=== PATIENT | female | born 1965 | race Caucasian/White ===

== ENCOUNTER 2019-05-12 10:24 | Inpatient (IN) | payer OTHER ==
--- NOTE | 2019-05-12 10:33 | PDOC ---
History of Present Illness - General Chief Complaint: Weakness Stated Complaint: BALANCE ISSUE WEAKNESS TO LEGS Time Seen by Provider: 05/12/19 10:30 History Source: Patient Exam Limitations: No Limitations - History of Present Illness Initial Comments: 05/12/19 10:32 Ms Hope is a 53 female presented to emergency department with her due to lightheadedness on standing. Patient has noted over the past few months that when walking she feels lightheaded and dizzy. She denies vertigo. She does also have a headache on the left side of the head which is been present for several months. She denies fevers or chills. She comes in today because her family has insisted that she come in for assessment. She does not follow up with her primary care physician and therefore has no knowledge of medical history. She does not take any medications. She does tell me that she's noticed dark loose stools for at least a month. She has no history or knowledge of peptic ulcer disease, ulcer. She denies chest pain, palpitations, diaphoresis. She denies nausea or vomiting. She was noted by family to have noticeable weight loss (she is unable to tell me how much, she is also unable to tell me how much she weighs now). PMH: unknown PSH: none Meds: none ALL: NKDA Social: Dalily alcohol use - 2 vodkas and 2 talon each night, denies drug use, denies tobacco use FH: CAD mother, all family members ROS: GENERAL/CONSTITUTIONAL: Yes: weakness, loss of appetite No: fever, chills HEAD, EYES, EARS, NOSE AND THROAT: No: change in vision, ear pain, discharge CARDIOVASCULAR: Yes: lightheadedness No: chest pain, palpitations, syncope RESPIRATORY: No: cough, shortness of breath, wheezing GASTROINTESTINAL: No: nausea, vomiting, diarrhea, abdominal pain GENITOURINARY: No: dysuria, hematuria, frequency MUSCULOSKELETAL: No: back pain, neck pain, joint pain SKIN: No: lesions, pallor, rash or easy bruising. NEUROLOGIC: Yes: left sided headache, weakness No: vertigo, paresthesias PE: GENERAL: The patient is in no acute distress, pt is weak appearing. HEAD: Normal . EYES: PERRLA, EOMI, pale conjunctiva ENT: Ears normal, nares patent, oropharynx clear without exudates. Dry mucous membranes. No tongue fasciculations NECK: Normal range of motion, supple without lymphadenopathy LUNGS: Breath sounds equal, clear to auscultation bilaterally. HEART:Regular rate and rhythm, normal S1 and S2 without murmur, rub or gallop. ABDOMEN: Soft, nontender, normoactive bowel sounds. No guarding, no rebound. RECTAL : no thrombosed external hemorrhoids, redundant tissue. no stool on examination EXTREMITIES: Normal range of motion, no edema. NEUROLOGICAL: Cranial nerves II through XII grossly intact. Normal speech. No focal neurological deficits. No tremulousness SKIN: Warm, Dry, normal turgor, no rashes or lesions noted. 05/12/19 12:05 05/14/19 23:37 Past History - Past Medical History Allergies/Adverse Reactions: Allergies Allergy/AdvReac Type Severity Reaction Status Date / Time No Known Allergies Allergy Unverified 05/12/19 10:26 Home Medications: Ambulatory Orders NK [No Known Home Medication] 05/12/19 ED Treatment Course - LABORATORY CBC & Chemistry Diagram: 05/14/19 07:00 05/14/19 07:00 Medical Decision Making - Critical Care Time Total Critical Care Time (minutes): 60 Critical Care Statement: The care of this patient involved high complexity decision making to prevent further life threatening deterioration of the patient 's condition and/or to evaluate & treat vital organ system(s) failure or risk of failure. - Medical Decision Making 05/12/19 12:02 Laboratory Tests 05/12/19 05/12/19 05/12/19 10:55 10:55 10:55 WBC Hgb Hct Plt Count Sodium 130 L Potassium 2.7 L* Chloride 90 L Carbon Dioxide 27 BUN 29.0 H Creatinine 0.6 Creatine Kinase 30 Troponin I < 0.03 Alcohol, Quantitative 180.5 H 05/12/19 10:55 WBC 6.6 Hgb 6.1 L* Hct 17.6 L Plt Count 314 Sodium Potassium Chloride Carbon Dioxide BUN Creatinine Creatine Kinase Troponin I Alcohol, Quantitative Protonix ordered Potassium ordered Pt appears pre renal, gentle hydration ordered 05/12/19 12:02 PT is refusing to stay in the hospital I have offered that she just stay 1 night for a transfusion Pt is refusing She is siting her pets, her job i have explained that I am concerned about her electrolytes and her blood counts being so very low I have called [facility] to assist me with discussing admission with this patient 05/12/19 13:51 EKG - NSR rate of 81 bpm, axis is difficult to determine as pt QRS is very low voltage, no st elevation or depression, t waves upright 05/12/19 14:53 CT with moderate atrophy, no ICH, no masses seen *DC/Admit/Observation/Transfer Diagnosis at time of Disposition: Orthostatic hypotension, Symptomatic anemia, Hypokalemia, Dehydration - Discharge Dispostion Condition at time of disposition: Fair Decision to Admit order: Yes - Referrals - Patient Instructions - Post Discharge Activity
[2019-05-12] MEDS ORDERED: SODIUM CHLORIDE 1,000 ML IV STA (10:38)
[2019-05-12 11:01] LABS: EOS % 0.1 % (0-4.5); WHITE BLOOD COUNT 6.6 K/mm3 (4.0-10.8)
[2019-05-12 11:06] LABS: BASO % 0.5 % (0-2.0); HEMATOCRIT 17.6 % (32.4-45.2); LYMPH % 17.4 % (8-40); MCHC 34.6 g/dl (32.0-36.0); MEAN CELL VOLUME 119.4 fl (80-96); MEAN PLT VOLUME 7.4 fl (7.5-11.1); MONO % 10.4 % (3.8-10.2); NEUT % 71.6 % (42.8-82.8); PLATELET COUNT 314 K/MM3 (134-434); RBC 1.48 M/mm3 (3.60-5.2); RDW 13.8 % (11.6-15.6)
[2019-05-12 11:20] LABS: ALBUMIN 3.8 g/dl (3.4-5.0); BILIRUBIN,TOTAL 0.9 mg/dl (0.2-1); CALCIUM 8.3 mg/dl (8.5-10); CREATININE 0.6 mg/dl (0.55-1.3); MAGNESIUM 2.1 mg/dL (1.8-2.4); TOT PROT 6.4 g/dl (6.4-8.2)
[2019-05-12 11:23] LABS: HEMOGLOBIN 6.1 GM/dl (10.7-15.3); MCH 41.3 pg (25.7-33.7); POTASSIUM 2.7 mmol/L (3.5-5.1)
[2019-05-12] MEDS ORDERED: POTASSIUM CHLORIDE ORAL LIQUID 20 MEQ/15 ML PO ONE (11:31)
[2019-05-12] MEDS ORDERED: PANTOPRAZOLE SODIUM 40 MG VIAL IVPUSH ONE (11:31)
[2019-05-12] MEDS ORDERED: PANTOPRAZOLE SODIUM 40 MG VIAL ONE (11:37)
[2019-05-12] MEDS ORDERED: KCL 10 MEQ IVPB 10 MEQ/100 ML INFUS.BAG IVPB ONE (11:37)
[2019-05-12] MEDS ORDERED: POTASSIUM CHLORIDE ORAL LIQUID 20 MEQ/15 ML ONE (11:38)
[2019-05-12] MEDS ORDERED: KCL 10 MEQ IVPB 10 MEQ/100 ML INFUS.BAG IVPB SCH (11:45)
--- NOTE | 2019-05-12 13:07 | HP ---
CHIEF COMPLAINT: Gait instability PCP: None HISTORY OF PRESENT ILLNESS: 53 year-old woman who has not seen a health care provider in many years and who acknowledges a long history of alcohol abuse. Patient started drinking alcohol in college. She cannot remember a day since then when she did not drink. She presented to the ED today with several complaints: (1) over the past month has had lower extremity weakness, her balance has been off, and she has had to hold on to furniture and [place] to remain upright, this occurs, she says, not from intoxication but because her feet feel tingly; (2) she has been vomiting dark brown vomit x 1 month, last episode 2 days ago; (3) diarrhea for the past two weeks, dark brown loose stools/liquid; (4) bright red blood on toilet paper at end of a bowel movement, this is chronic, not new, denies history of hemorrhoids. In past year has gone from 140-145 lbs to 107 lbs. Patient states she has not been "eating right". LMP a few years ago, denies vaginal bleeding. Denies dysuria, frequency, urgency, hematuria. Denies fever, sweats, chills. Takes no medications other than an occasional Tylenol. A week ago she started taking a daily baby aspirin because someome recommended it to her. She denies NSAID use. ER course was notable for: (1) BP 93/65, p104 (2) Hgb 6.1, MCV 119 (3) K 2.7 Recent Travel: No PAST MEDICAL HISTORY: Alcohol abuse PAST SURGICAL HISTORY: x 20 years (gave to twins given up for adoption) Social History: lives with ; drives to work every day to [place], works in an [employer] firm Smoking: quit 5 years ago, smoked for 15 years Alcohol: daily; vodka, wine; last drink 05/11 ~10pm Drugs: denies Family History: mother 76 Alzheimers; father 73 heart failure, alcholism; sister 58 heart disease, alcholism; brother alive, alcoholic in a program Allergies No Known Allergies Allergy (Unverified 05/12/19 10:26) HOME MEDICATIONS: Home Medications Medication Instructions Recorded NK [No Known Home Medication] 05/12/19 REVIEW OF SYSTEMS CONSTITUTIONAL: +generalized weakness, loss of appetitie, unintentional weight loss ~35 pounds over a year Absent: fever, chills, diaphoresis HEENT: Absent: rhinorrhea, nasal congestion, throat pain, throat swelling, difficulty swallowing, mouth swelling, ear pain, eye pain, visual changes CARDIOVASCULAR: Absent: chest pain, syncope, palpitations, irregular heart rate, lightheadedness , peripheral edema RESPIRATORY: Absent: cough, shortness of breath, dyspnea with exertion, orthopnea, wheezing, stridor, hemoptysis GASTROINTESTINAL: +vomiting dark brown, diarrhea, BRBPR (chronic) Absent: abdominal pain, abdominal distension, constipation, melena, hematochezia GENITOURINARY: Absent: dysuria, frequency, urgency, hesitancy, hematuria, flank pain, genital pain MUSCULOSKELETAL: Absent: myalgia, arthralgia, joint swelling, back pain, neck pain SKIN: Absent: rash, itching, pallor HEMATOLOGIC/IMMUNOLOGIC: Absent: easy bleeding, easy bruising, lymphadenopathy, frequent infections ENDOCRINE: Absent: unexplained weight gain, unexplained weight loss, heat intolerance, cold intolerance NEUROLOGIC: +tingling both feet Absent: headache, focal weakness or paresthesias, dizziness, unsteady gait, seizure, mental status changes, bladder or bowel incontinence PSYCHIATRIC: +alcohol dependence Absent: anxiety, depression, suicidal or homicidal ideation, hallucinations. PHYSICAL EXAMINATION Vital Signs - 24 hr 05/12/19 05/12/19 10:26 11:02 Temperature 98.4 F Pulse Rate 94 H Pulse Rate [ 104 H Left side Standing] Pulse Rate [ 86 Left side Supine] Respiratory 16 Rate Blood Pressure 114/73 Blood Pressure 93/65 [Left side Standing] Blood Pressure 109/78 [Left side Supine] O2 Sat by Pulse 100 Oximetry (%) GENERAL/NEURO: Awake, alert. Anxious. Irritable. Tremulous. Hand tremors, + asterixis; no diaphoresis; CN II-XII grossly intact; speech clear and logical HEAD: Normal with no signs of trauma. EYES: Pupils equal, round and reactive to light, extraocular movements intact, sclera anicteric, conjunctiva clear. No lid lag. EARS, NOSE, THROAT: Ears normal, nares patent, oropharynx clear without exudates. Moist mucous membranes. NECK: Normal range of motion, supple without lymphadenopathy, JVD, or masses. LUNGS: Breath sounds equal, clear to auscultation bilaterally. No wheezes, and no crackles. No accessory muscle use. HEART: Regular rate and rhythm, S1 and S2 ABDOMEN: Soft, nontender, not distended, normoactive bowel sounds, no guarding, no rebound tenderness MUSCULOSKELETAL: Normal range of motion at all joints. No bony deformities or tenderness. No CVA tenderness. UPPER EXTREMITIES: 2+ pulses, warm, well-perfused. No cyanosis. No clubbing. No peripheral edema. LOWER EXTREMITIES: 2+ pulses, warm, well-perfused. No calf tenderness. No peripheral edema. Laboratory Results - last 24 hr 05/12/19 05/12/19 05/12/19 10:55 10:55 10:55 WBC RBC Hgb Hct MCV MCH MCHC RDW Plt Count MPV Absolute Neuts (auto) Neutrophils % Lymphocytes % Monocytes % Eosinophils % Basophils % Sodium 130 L Potassium 2.7 L* Chloride 90 L Carbon Dioxide 27 Anion Gap 13 BUN 29.0 H Creatinine 0.6 Est GFR (CKD-EPI)AfAm 118.93 Est GFR (CKD-EPI)NonAf 102.61 Random Glucose 99 Calcium 8.3 L Magnesium 2.1 Total Bilirubin 0.9 AST 273 H ALT 95 H Alkaline Phosphatase 105 Creatine Kinase 30 Troponin I < 0.03 Total Protein 6.4 Albumin 3.8 TSH 0.92 Stool Occult Blood Alcohol, Quantitative 180.5 H 05/12/19 05/12/19 10:55 11:59 WBC 6.6 RBC 1.48 L Hgb 6.1 L* Hct 17.6 L MCV 119.4 H MCH 41.3 H MCHC 34.6 RDW 13.8 Plt Count 314 MPV 7.4 L Absolute Neuts (auto) 4.8 Neutrophils % 71.6 Lymphocytes % 17.4 Monocytes % 10.4 H Eosinophils % 0.1 Basophils % 0.5 Sodium Potassium Chloride Carbon Dioxide Anion Gap BUN Creatinine Est GFR (CKD-EPI)AfAm Est GFR (CKD-EPI)NonAf Random Glucose Calcium Magnesium Total Bilirubin AST ALT Alkaline Phosphatase Creatine Kinase Troponin I Total Protein Albumin TSH Stool Occult Blood Trace Alcohol, Quantitative ASSESSMENT/PLAN 53 year-old woman who has not seen a health care provider in many years and with a long history of alcohol abuse. Admitted for acute alcohol withdrawal, anemia, and hypokalemia. Alcohol dependence Acute alcohol withdrawal --s/s of alcohol withdrawal present on admission: tremors, asterixis, irritability, anxiety --ativan 1mg IVP x 1 --start librium taper --multi vitamin bag; daily folic acid and thiamine --IV fluids --consult request for Dr. Cristina, [facility] --telemetry monitoring Hypokalemia --replete, goal >4 --recheck lytes 6:00pm Blood loss anemia --Hgb 6.1 --probably chronic, has been vomiting dark brown fluid x 1 month --transfuse 2U PRBC, lasix in between Macrocytic anemia --likely secondary to alcohol --check folate, B12, MMA, homocysteine --iron studies --draw bloods prior to transfusion Prolonged QT interval --QTc 489 --avoid QT prolonging agents including Zofran --Tigan PRN for nausea FEN Fluids: NS@ 125mg/hr Electrolytes: replete as indicated Nutrition: NPO for now DVT prophylaxis: hold chemical prophylaxis due to anemia; SCDs Dispo: continues to require inpatient care. Full code. Visit type - Emergency Visit Emergency Visit: Yes ED Registration Date: 05/12/19 Care time: The patient presented to the Emergency Department on the above date and was hospitalized for further evaluation of their emergent condition. - New Patient This patient is new to me today: Yes Date on this admission: 05/12/19 - Critical Care Critical Care patient: Yes Total Critical Care Time (in minutes): 60 Critical Care Statement: The care of this patient involved high complexity decision making to prevent further life threatening deterioration of the patient 's condition and/or to evaluate & treat vital organ system(s) failure or risk of failure.
[2019-05-12] MEDS ORDERED: DEXTROSE 5%-NORMAL SALINE 1,000 ML IV SCH (13:15)
[2019-05-12] MEDS ORDERED: FOLIC ACID INJECTION - 1 MG, THIAMINE HCL 100 MG, MULTIVIT INJECTION ADULT 10 ML in SOD... IVPB ONE (13:25)
[2019-05-12 13:29] LABS: ADD RBC MORPHOLOGY YES
[2019-05-12] MEDS ORDERED: chlordiazePOXIDE HCL 25 MG CAPSULE PO PRN (13:30)
[2019-05-12] MEDS ORDERED: chlordiazePOXIDE HCL 25 MG CAPSULE PO ONE ×2 (13:33→16:37)
[2019-05-12] MEDS ORDERED: POTASSIUM CHLORIDE TABS 20 MEQ TABLET.ER (FP) PO ONE (13:36)
[2019-05-12] MEDS ORDERED: LORazepam 2 MG/ML SDV VIAL ONE (15:10)
[2019-05-12] MEDS ORDERED: LORazepam 2 MG/ML SDV VIAL IVPUSH ONE (15:20)
[2019-05-12] MEDS: KCL 10 MEQ IVPB 10 MEQ/100 ML INFUS.BAG IVPB SCH ×2 (15:30→15:33)
[2019-05-12] MEDS ORDERED: TRIMETHOBENZAMIDE HCL 300 MG CAPSULE PO PRN (17:35)
[2019-05-12] MEDS ORDERED: SODIUM CHLORIDE 1,000 ML IV SCH (17:45)
[2019-05-12 18:17] LABS: ANION GAP 7 MMOL/L (8-16); CALCIUM 7.5 mg/dl (8.5-10); CHLORIDE 102 mmol/L (98-107); CO2 26 mmol/L (21-32); CREATININE 0.4 mg/dl (0.55-1.3); GLUCOSE,RANDOM 86 mg/dl (74-106); MAGNESIUM 1.8 mg/dL (1.8-2.4); POTASSIUM 4.3 mmol/L (3.5-5.1); SODIUM 135 mmol/L (136-145)
[2019-05-12 19:15] LABS: IRON SERUM 63 ug/dL (50-175); TOTAL IRON BINDING CAPACITY 238 ug/dL (250-450)
[2019-05-12] MEDS ORDERED: FUROSEMIDE 40 MG/4 ML INJECTABLE VIAL IVPUSH ONE (21:00)
[2019-05-12] MEDS: chlordiazePOXIDE HCL 25 MG CAPSULE PO SCH (22:22)
[2019-05-12 23:17] LABS: COCAINE, UR NEGATIVE ng/ml (CUTOFF=300); METHADONE, UR NEGATIVE ng/ml (CUTOFF=300); OPIATES, URI NEGATIVE ng/ml (CUTOFF=300); PHENCYCLIDINE,URINE NEGATIVE ng/ml (CUTOFF=25); URINE AMPHETAMINES NEGATIVE ng/ml (CUTOFF=500); URINE BARBITURATES NEGATIVE ng/ml (CUTOFF=200); URINE BENZODIAZEPINES NEGATIVE ng/ml (CUTOFF=200)
[2019-05-13] MEDS: chlordiazePOXIDE HCL 25 MG CAPSULE PO SCH ×4 (06:23→22:27)
--- NOTE | 2019-05-13 07:42 | PN ---
Physical Exam: SUBJECTIVE: Patient seen and examined at bedside. Very subdued. One word answers. Doing "OK." OBJECTIVE: Vital Signs Period Temp Pulse Resp BP Sys/Carbajal Pulse Ox Last 24 Hr 98.4 F-99.1 F 71-104 16-18 93-114/55-78 94-100 GENERAL/NEURO: Awake, alert. Subdued. No tremors, no asterixis. CN II-XII grossly intact; speech clear and logical LUNGS: Breath sounds equal, clear to auscultation bilaterally. No wheezes, and no crackles. No accessory muscle use. HEART: Regular rate and rhythm, S1 and S2 ABDOMEN: Soft, nontender, not distended UPPER EXTREMITIES: 2+ pulses, warm, well-perfused. No cyanosis. No clubbing. No peripheral edema. LOWER EXTREMITIES: 2+ pulses, warm, well-perfused. No calf tenderness. No peripheral edema. Laboratory Results - last 24 hr 05/12/19 05/12/19 05/12/19 10:55 10:55 10:55 WBC RBC Hgb Hct MCV MCH MCHC RDW Plt Count MPV Absolute Neuts (auto) Neutrophils % Lymphocytes % Monocytes % Eosinophils % Basophils % Hypersegmented Neuts Hypochromia Toxic Granulation Dohle Bodies Polychromasia Poikilocytosis Basophilic Stippling Anisocytosis Microcytosis Macrocytosis Spherocytes Siderocytes Sickle Cells Target Cells Tear Drop Cells Ovalocytes Stomatocytes Helmet Cells Marr-Alliance Bodies [place] Rings Haslett Cells Acanthocytes (Spur) Rouleaux Fragmented RBCs Schistocytes Morphology Comment PTT (Actin FS) Sodium 130 L Potassium 2.7 L* Chloride 90 L Carbon Dioxide 27 Anion Gap 13 BUN 29.0 H Creatinine 0.6 Est GFR (CKD-EPI)AfAm 118.93 Est GFR (CKD-EPI)NonAf 102.61 Random Glucose 99 Calcium 8.3 L Magnesium 2.1 Iron TIBC Iron Saturation Unsaturated IBC Ferritin Total Bilirubin 0.9 AST 273 H ALT 95 H Alkaline Phosphatase 105 Creatine Kinase 30 Troponin I < 0.03 Total Protein 6.4 Albumin 3.8 Vitamin B12 Serum Folate TSH 0.92 Urine Color Urine Appearance Urine pH Urine Protein Urine Glucose (UA) Urine Ketones Urine Blood Urine Nitrite Urine Bilirubin Urine Urobilinogen Ur Leukocyte Esterase Urine HCG, Qual Stool Occult Blood Opiates Screen Methadone Screen Barbiturate Screen Phencyclidine Screen Ur Amphetamines Screen MDMA (Ecstasy) Screen Benzodiazepines Screen Cocaine Screen U Marijuana (THC) Screen Alcohol, Quantitative 180.5 H Blood Type Antibody Screen Crossmatch 05/12/19 05/12/19 05/12/19 10:55 11:45 11:50 WBC 6.6 RBC 1.48 L Hgb 6.1 L* Hct 17.6 L MCV 119.4 H MCH 41.3 H MCHC 34.6 RDW 13.8 Plt Count 314 MPV 7.4 L Absolute Neuts (auto) 4.8 Neutrophils % 71.6 Lymphocytes % 17.4 Monocytes % 10.4 H Eosinophils % 0.1 Basophils % 0.5 Hypersegmented Neuts Cancelled Hypochromia Cancelled Toxic Granulation Cancelled Dohle Bodies Cancelled Polychromasia Cancelled Poikilocytosis Cancelled Basophilic Stippling Cancelled Anisocytosis Cancelled Microcytosis Cancelled Macrocytosis Cancelled Spherocytes Cancelled Siderocytes Cancelled Sickle Cells Cancelled Target Cells Cancelled Tear Drop Cells Cancelled Ovalocytes Cancelled Stomatocytes Cancelled Helmet Cells Cancelled Marr-Alliance Bodies Cancelled [place] Rings Cancelled Kami Cells Cancelled Acanthocytes (Spur) Cancelled Rouleaux Cancelled Fragmented RBCs Cancelled Schistocytes Cancelled Morphology Comment Cancelled PTT (Actin FS) Sodium Potassium Chloride Carbon Dioxide Anion Gap BUN Creatinine Est GFR (CKD-EPI)AfAm Est GFR (CKD-EPI)NonAf Random Glucose Calcium Magnesium Iron TIBC Iron Saturation Unsaturated IBC Ferritin Total Bilirubin AST ALT Alkaline Phosphatase Creatine Kinase Troponin I Total Protein Albumin Vitamin B12 Serum Folate TSH Urine Color Urine Appearance Urine pH Urine Protein Urine Glucose (UA) Urine Ketones Urine Blood Urine Nitrite Urine Bilirubin Urine Urobilinogen Ur Leukocyte Esterase Urine HCG, Qual Stool Occult Blood Opiates Screen Methadone Screen Barbiturate Screen Phencyclidine Screen Ur Amphetamines Screen MDMA (Ecstasy) Screen Benzodiazepines Screen Cocaine Screen U Marijuana (THC) Screen Alcohol, Quantitative Blood Type B POSITIVE B POSITIVE Antibody Screen Negative Crossmatch See Detail 05/12/19 05/12/19 05/12/19 11:59 17:30 17:30 WBC RBC Hgb Hct MCV MCH MCHC RDW Plt Count MPV Absolute Neuts (auto) Neutrophils % Lymphocytes % Monocytes % Eosinophils % Basophils % Hypersegmented Neuts Hypochromia Toxic Granulation Dohle Bodies Polychromasia Poikilocytosis Basophilic Stippling Anisocytosis Microcytosis Macrocytosis Spherocytes Siderocytes Sickle Cells Target Cells Tear Drop Cells Ovalocytes Stomatocytes Helmet Cells Marr-Alliance Bodies [place] Rings Kami Cells Acanthocytes (Spur) Rouleaux Fragmented RBCs Schistocytes Morphology Comment PTT (Actin FS) Sodium Potassium Chloride Carbon Dioxide Anion Gap BUN Creatinine Est GFR (CKD-EPI)AfAm Est GFR (CKD-EPI)NonAf Random Glucose Calcium Magnesium Iron TIBC Iron Saturation Unsaturated IBC Ferritin Total Bilirubin AST ALT Alkaline Phosphatase Creatine Kinase Troponin I Total Protein Albumin Vitamin B12 Serum Folate TSH Urine Color Urine Appearance Urine pH Urine Protein Urine Glucose (UA) Urine Ketones Urine Blood Urine Nitrite Urine Bilirubin Urine Urobilinogen Ur Leukocyte Esterase Urine HCG, Qual Negative Stool Occult Blood Trace Opiates Screen Negative Methadone Screen Negative Barbiturate Screen Negative Phencyclidine Screen Negative Ur Amphetamines Screen Negative MDMA (Ecstasy) Screen Negative Benzodiazepines Screen Negative Cocaine Screen Negative U Marijuana (THC) Screen Negative Alcohol, Quantitative Blood Type Antibody Screen Crossmatch 05/12/19 05/12/19 05/12/19 17:30 17:35 17:35 WBC RBC Hgb Hct MCV MCH MCHC RDW Plt Count MPV Absolute Neuts (auto) Neutrophils % Lymphocytes % Monocytes % Eosinophils % Basophils % Hypersegmented Neuts Hypochromia Toxic Granulation Dohle Bodies Polychromasia Poikilocytosis Basophilic Stippling Anisocytosis Microcytosis Macrocytosis Spherocytes Siderocytes Sickle Cells Target Cells Tear Drop Cells Ovalocytes Stomatocytes Helmet Cells Marr-Alliance Bodies [place] Rings [place]lett Cells Acanthocytes (Spur) Rouleaux Fragmented RBCs Schistocytes Morphology Comment PTT (Actin FS) 22.5 L Sodium Cancelled Potassium Cancelled Chloride Cancelled Carbon Dioxide Cancelled Anion Gap Cancelled BUN Cancelled Creatinine Cancelled Est GFR (CKD-EPI)AfAm Cancelled Est GFR (CKD-EPI)NonAf Cancelled Random Glucose Cancelled Calcium Cancelled Magnesium Cancelled Iron TIBC Iron Saturation Unsaturated IBC Ferritin Total Bilirubin AST ALT Alkaline Phosphatase Creatine Kinase Troponin I Total Protein Albumin Vitamin B12 404 Serum Folate TSH Urine Color Yellow Urine Appearance Clear Urine pH 5.5 Urine Protein Trace Urine Glucose (UA) Negative Urine Ketones Trace Urine Blood Negative Urine Nitrite Negative Urine Bilirubin 1+ H Urine Urobilinogen 1.0 Ur Leukocyte Esterase Negative Urine HCG, Qual Stool Occult Blood Opiates Screen Methadone Screen Barbiturate Screen Phencyclidine Screen Ur Amphetamines Screen MDMA (Ecstasy) Screen Benzodiazepines Screen Cocaine Screen U Marijuana (THC) Screen Alcohol, Quantitative Blood Type Antibody Screen Crossmatch 05/12/19 05/12/19 05/12/19 17:35 17:35 17:35 WBC RBC Hgb Hct MCV MCH MCHC RDW Plt Count MPV Absolute Neuts (auto) Neutrophils % Lymphocytes % Monocytes % Eosinophils % Basophils % Hypersegmented Neuts Hypochromia Toxic Granulation Dohle Bodies Polychromasia Poikilocytosis Basophilic Stippling Anisocytosis Microcytosis Macrocytosis Spherocytes Siderocytes Sickle Cells Target Cells Tear Drop Cells Ovalocytes Stomatocytes Helmet Cells Marr-Alliance Bodies [place] Rings Haslett Cells Acanthocytes (Spur) Rouleaux Fragmented RBCs Schistocytes Morphology Comment PTT (Actin FS) Sodium 135 L Potassium 4.3 Chloride 102 Carbon Dioxide 26 Anion Gap 7 L BUN 21.0 H Creatinine 0.4 L Est GFR (CKD-EPI)AfAm 135.90 Est GFR (CKD-EPI)NonAf 117.26 Random Glucose 86 Calcium 7.5 L Magnesium 1.8 Iron 63 TIBC 238 L Iron Saturation 26 Unsaturated IBC 175 L Ferritin 1165.1 H Total Bilirubin AST ALT Alkaline Phosphatase Creatine Kinase Troponin I Total Protein Albumin Vitamin B12 Serum Folate > 100 H TSH Urine Color Urine Appearance Urine pH Urine Protein Urine Glucose (UA) Urine Ketones Urine Blood Urine Nitrite Urine Bilirubin Urine Urobilinogen Ur Leukocyte Esterase Urine HCG, Qual Stool Occult Blood Opiates Screen Methadone Screen Barbiturate Screen Phencyclidine Screen Ur Amphetamines Screen MDMA (Ecstasy) Screen Benzodiazepines Screen Cocaine Screen U Marijuana (THC) Screen Alcohol, Quantitative Blood Type Antibody Screen Crossmatch Active Medications Generic Name Dose Route Start Last Admin Trade Name Freq PRN Reason Stop Dose Admin Chlordiazepoxide HCl 10 mg 05/15/19 05:00 Librium - PO 05/15/19 23:01 [id number] Chlordiazepoxide HCl 10 mg 05/16/19 05:00 Librium - PO 05/16/19 17:01 Q12H TIKI Chlordiazepoxide HCl 10 mg 05/15/19 00:00 Librium - PO 05/16/19 00:00 Q4H PRN WITHDRAWAL(CONT SUBST) Chlordiazepoxide HCl 10 mg 05/17/19 05:00 Librium - PO 05/17/19 05:01 ONCE@0500 ONE Chlordiazepoxide HCl 50 mg 05/12/19 23:00 05/13/19 06:23 Librium - PO 05/13/19 23:01 50 mg [id number] TIKI Administration Chlordiazepoxide HCl 25 mg 05/14/19 05:00 Librium - PO 05/14/19 23:01 [id number] Chlordiazepoxide HCl 25 mg 05/12/19 13:30 Librium - PO 05/14/19 23:59 Q4H PRN WITHDRAWAL(CONT SUBST) Folic Acid 1 mg 05/13/19 10:00 Folic Acid - PO DAILY TIKI Sodium Chloride 1,000 mls @ 125 mls/hr 05/12/19 17:45 05/12/19 18:28 Normal Saline - IV 125 mls/hr ASDIR TIKI Administration Pantoprazole Sodium 40 mg 05/13/19 10:00 Protonix - PO DAILY TIKI Thiamine HCl 100 mg 05/13/19 10:00 Vitamin B1 - PO DAILY TIKI Trimethobenzamide HCl 300 mg 05/12/19 17:35 Tigan - PO Q6H PRN NAUSEA AND/OR VOMITING ASSESSMENT/PLAN: 53 year-old woman who has not seen a health care provider in many years and with a long history of alcohol abuse. Admitted for acute alcohol withdrawal, anemia, and hypokalemia. Alcohol dependence Acute alcohol withdrawal --s/s of alcohol withdrawal present on admission, improved --continue librium taper --folic acid and thiamine --consult request for Dr. Cristina, [facility] --continue telemetry monitoring Hypokalemia --replete, goal >4 Blood loss anemia, chronic --transfused 2U PRBC with good response Hgb 8.8 (<--6.1) Macrocytic anemia --likely secondary to alcohol --folate and B12 OK --iron studies pending Prolonged QT interval --QTc 489 --avoid QT prolonging agents-no Zofran --Tigan PRN for nausea FEN Fluids: PO intake adequate Electrolytes: replete as indicated Nutrition: full liquid; advance as tolerated DVT prophylaxis: continue to hold chemical prophylaxisdue to anemia; SCDs Dispo: continues to require inpatient care. Full code. Visit type - Emergency Visit Emergency Visit: Yes ED Registration Date: 05/12/19 Care time: The patient presented to the Emergency Department on the above date and was hospitalized for further evaluation of their emergent condition. - New Patient This patient is new to me today: No - Critical Care Critical Care patient: No
[2019-05-13 07:57] LABS: BASO % 0.6 % (0-2.0); EOS % 0.8 % (0-4.5); HEMATOCRIT 25.9 % (32.4-45.2); HEMOGLOBIN 8.8 GM/dl (10.7-15.3); INR 1.04 (0.82-1.09); LYMPH % 10.2 % (8-40); MCH 35.6 pg (25.7-33.7); MCHC 34.2 g/dl (32.0-36.0); MEAN PLT VOLUME 7.4 fl (7.5-11.1); MONO % 15.3 % (3.8-10.2); NEUT % 73.1 % (42.8-82.8); PLATELET COUNT 244 K/MM3 (134-434); PROTHROMBIN TIME (PATIENT) 11.6 SEC (10.2-13.0); RBC 2.49 M/mm3 (3.60-5.2); RDW 26.1 % (11.6-15.6); WHITE BLOOD COUNT 5.9 K/mm3 (4.0-10.8)
[2019-05-13 08:03] LABS: ALBUMIN 3.2 g/dl (3.4-5.0); BILIRUBIN,TOTAL 1.4 mg/dl (0.2-1); CALCIUM 7.7 mg/dl (8.5-10); CREATININE 0.4 mg/dl (0.55-1.3); MAGNESIUM 1.5 mg/dL (1.8-2.4); PHOSPHOROUS 2.4 mg/dl (2.5-4.9); POTASSIUM 3.5 mmol/L (3.5-5.1); TOT PROT 5.4 g/dl (6.4-8.2)
[2019-05-13 08:30] LABS: ADD RBC MORPHOLOGY YES
[2019-05-13 09:22] LABS: ANISOCYTOSIS 2+; MACROCYTOSIS 1+
[2019-05-13 09:23] LABS: PLATELET ESTIMATE ADEQUATE
[2019-05-13] MEDS: PANTOPRAZOLE 40 MG TABLET (FP) PO SCH (09:43)
[2019-05-13] MEDS: THIAMINE HCL 100 MG TABLET (FP) PO SCH (09:43)
[2019-05-13] MEDS: FOLIC ACID 1 MG TABLET (FP) PO SCH (09:43)
--- NOTE | 2019-05-13 10:33 | EKG ---
Test Reason : Blood Pressure : / mmHG Vent. Rate : 084 BPM Atrial Rate : 084 BPM P-R Int : 202 ms QRS Dur : 080 ms QT Int : 414 ms P-R-T Axes : 043 044 066 degrees QTc Int : 489 ms NORMAL SINUS RHYTHM PROLONGED QT ABNORMAL ECG WHEN COMPARED WITH ECG OF 12-MAY-2019 10:58, QRS AXIS SHIFTED LEFT ST NO LONGER DEPRESSED IN LATERAL LEADS NONSPECIFIC T WAVE ABNORMALITY NO LONGER EVIDENT IN INFERIOR LEADS Confirmed by RICKY GUERRA MD ([id number]) on 05/13/2019 10:33:12 AM Referred By: AYESHA SANTAMARIA Confirmed By:RICKY GUERRA MD
--- NOTE | 2019-05-13 10:33 | EKG ---
Test Reason : Blood Pressure : / mmHG Vent. Rate : 081 BPM Atrial Rate : 081 BPM P-R Int : 194 ms QRS Dur : 094 ms QT Int : 404 ms P-R-T Axes : 000 131 146 degrees QTc Int : 469 ms POOR DATA QUALITY, INTERPRETATION MAY BE ADVERSELY AFFECTED NORMAL SINUS RHYTHM RIGHT AXIS DEVIATION LOW VOLTAGE QRS NONSPECIFIC ST AND T WAVE ABNORMALITY ABNORMAL ECG NO PREVIOUS ECGS AVAILABLE Confirmed by MARI BASILIO, RICKY ([id number]) on 05/13/2019 10:33:30 AM Referred By: GISSELLE SEWELL Confirmed By:RICKY GUERRA MD
[2019-05-13] MEDS ORDERED: MAGNESIUM SULF 50% (8.12 MEQ/2 ML-1 GM VIAL) IVPB ONE (11:00)
--- NOTE | 2019-05-13 19:27 | PN ---
[facility] Progress Note (SOAP) Subjective: 53 y.o. female referred for consultation for etoh use , pt reluctant to provide information to publicity writer , states drinking alcohol 1 or 2 glasses of wine / day does not wish to disclose for how long , denies symptoms of withdrawal if not drinking , denies nausea/ vomiting diarrhea , denies seizures , blackouts or tremors . Pt is hostile to publicity writer " this is moot , I have to answer these questions again ? " , evasive and not interested in providing further information , declines further medical evaluation from this publicity writer . Reports interest in d/c to home today. Current meds as below . Active Medications Chlordiazepoxide HCl (Librium -) 10 mg PO [id number] [facility] Stop: 05/15/19 23:01 Chlordiazepoxide HCl (Librium -) 10 mg PO Q12H TIKI Stop: 05/16/19 17:01 Chlordiazepoxide HCl (Librium -) 10 mg PO Q4H PRN PRN Reason: WITHDRAWAL(CONT SUBST) Stop: 05/16/19 00:00 Chlordiazepoxide HCl (Librium -) 10 mg PO ONCE@0500 ONE Stop: 05/17/19 05:01 Chlordiazepoxide HCl (Librium -) 50 mg PO [id number] TIKI Stop: 05/13/19 23:01 Last Admin: 05/13/19 18:13 Dose: 50 mg Chlordiazepoxide HCl (Librium -) 25 mg PO [id number] TIKI Stop: 05/14/19 23:01 Chlordiazepoxide HCl (Librium -) 25 mg PO Q4H PRN PRN Reason: WITHDRAWAL(CONT SUBST) Stop: 05/14/19 23:59 Folic Acid (Folic Acid -) 1 mg PO DAILY [facility] Last Admin: 05/13/19 09:43 Dose: 1 mg Pantoprazole Sodium (Protonix -) 40 mg PO DAILY [facility] Last Admin: 05/13/19 09:43 Dose: 40 mg Thiamine HCl (Vitamin B1 -) 100 mg PO DAILY [facility] Last Admin: 05/13/19 09:43 Dose: 100 mg Trimethobenzamide HCl (Tigan -) 300 mg PO Q6H PRN PRN Reason: NAUSEA AND/OR VOMITING Objective: 05/13/19 19:23 CBC, BMP 05/13/19 07:12 05/13/19 07:12 Abnormal Lab Results 05/12/19 05/12/19 05/12/19 11:45 17:35 17:35 RBC Hgb Hct MCV MCH RDW MPV Monocytes % Sodium Creatinine Calcium Phosphorus Magnesium Transferrin 180 L Total Bilirubin AST ALT Total Protein Albumin Serum Folate > 100 H Crossmatch See Detail 05/13/19 05/13/19 07:12 07:12 RBC 2.49 L Hgb 8.8 L Hct 25.9 L D MCV 104.0 H MCH 35.6 H D RDW 26.1 H MPV 7.4 L Monocytes % 15.3 H Sodium 135 L Creatinine 0.4 L Calcium 7.7 L Phosphorus 2.4 L Magnesium 1.5 L Transferrin Total Bilirubin 1.4 H AST 192 H ALT 80 H Total Protein 5.4 L Albumin 3.2 L Serum Folate Crossmatch Vital Signs - 24 hr 05/12/19 05/12/19 05/13/19 20:07 20:08 00:00 Temperature 98.9 F 99.1 F Pulse Rate 95 H 75 Respiratory 18 18 18 Rate Blood Pressure 100/61 101/71 O2 Sat by Pulse 99 99 100 Oximetry (%) 05/13/19 05/13/19 05/13/19 04:00 06:00 13:41 Temperature 98.7 F 98.0 F Pulse Rate 71 78 Respiratory 18 17 Rate Blood Pressure 113/73 115/76 O2 Sat by Pulse 94 L 100 Oximetry (%) 05/13/19 05/13/19 16:00 19:03 Temperature 98.5 F 98.5 F Pulse Rate 81 81 Respiratory 18 Rate Blood Pressure 114/73 O2 Sat by Pulse 100 100 Oximetry (%) Assessment: Alcohol use Plan: pt already on Librium protocol .
[2019-05-14] MEDS: chlordiazePOXIDE HCL 25 MG CAPSULE PO SCH ×3 (06:08→18:31)
[2019-05-14 08:02] LABS: BASO % 0.4 % (0-2.0); EOS % 1.6 % (0-4.5); HEMOGLOBIN 10.2 GM/dl (10.7-15.3); LYMPH % 13.3 % (8-40); MCH 36.3 pg (25.7-33.7); MCHC 34.2 g/dl (32.0-36.0); MEAN PLT VOLUME 7.6 fl (7.5-11.1); MONO % 10.7 % (3.8-10.2); PLATELET COUNT 351 K/MM3 (134-434); RBC 2.81 M/mm3 (3.60-5.2); RDW 27.5 % (11.6-15.6)
[2019-05-14 08:21] LABS: MEAN CELL VOLUME 106.4 fl (80-96)
[2019-05-14 08:31] LABS: ALBUMIN 3.6 g/dl (3.4-5.0); CALCIUM 8.3 mg/dl (8.5-10); CREATININE 0.4 mg/dl (0.55-1.3); MAGNESIUM 1.8 mg/dL (1.8-2.4); POTASSIUM 3.3 mmol/L (3.5-5.1); TOT PROT 6.3 g/dl (6.4-8.2)
[2019-05-14] MEDS ORDERED: MAGNESIUM OXIDE 400 MG TABLET (FP) PO ONE (09:22)
[2019-05-14] MEDS: PANTOPRAZOLE 40 MG TABLET (FP) PO SCH (09:23)
[2019-05-14] MEDS: FOLIC ACID 1 MG TABLET (FP) PO SCH (09:23)
[2019-05-14] MEDS: THIAMINE HCL 100 MG TABLET (FP) PO SCH (09:23)
[2019-05-14] MEDS: POTASSIUM CHLORIDE TABS 20 MEQ TABLET.ER (FP) PO SCH ×2 (09:40→16:19)
--- NOTE | 2019-05-14 13:14 | PN ---
Physical Exam: SUBJECTIVE: Patient seen and examined at bedside. Advised patient HIDA scan negative. Advised patient of all pertinent lab values. Told her the librium taper would not be complete until Friday morning. Patient said she was not going [place] spend the [place]. Discussed at length the risks of leaving AMA including alcohol withdrawal-related seizures, hypoxia, respiratory arrest, aspiration, aspiration pneumonia, status epilepticus, and . Patient stated she still wants to sign out against medical advice. Recommended to patient she establish a relationship with a primary care provider. 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 Patient expressed understanding, thanked me, shook my hand. OBJECTIVE: Vital Signs Period Temp Pulse Resp BP Sys/Carbajal Pulse Ox Last 24 Hr 98.0 F-98.7 F 78-90 16-18 114-117/73-84 96-100 GENERAL/NEURO: Awake, alert. Subdued. No tremors, no asterixis. CN II-XII grossly intact; speech clear and logical LUNGS: Breath sounds equal, clear to auscultation bilaterally. No wheezes, and no crackles. No accessory muscle use. HEART: Regular rate and rhythm, S1 and S2 ABDOMEN: Soft, nontender, not distended UPPER EXTREMITIES: 2+ pulses, warm, well-perfused. No cyanosis. No clubbing. No peripheral edema. LOWER EXTREMITIES: 2+ pulses, warm, well-perfused. No calf tenderness. No peripheral edema. Laboratory Results - last 24 hr 05/12/19 05/14/19 05/14/19 17:35 07:00 07:00 WBC 8.0 RBC 2.81 L Hgb 10.2 L Hct 30.0 L D MCV 106.4 H MCH 36.3 H MCHC 34.2 RDW 27.5 H Plt Count 351 MPV 7.6 Absolute Neuts (auto) 5.9 Neutrophils % 74.0 Lymphocytes % 13.3 Monocytes % 10.7 H Eosinophils % 1.6 Basophils % 0.4 Sodium 134 L Potassium 3.3 L Chloride 99 Carbon Dioxide 28 Anion Gap 7 L BUN 5.0 L Creatinine 0.4 L Est GFR (CKD-EPI)AfAm 135.90 Est GFR (CKD-EPI)NonAf 117.26 Random Glucose 95 Calcium 8.3 L Magnesium 1.8 Transferrin 180 L Total Bilirubin 1.0 AST 131 H ALT 82 H Alkaline Phosphatase 107 D Total Protein 6.3 L Albumin 3.6 Active Medications Generic Name Dose Route Start Last Admin Trade Name Freq PRN Reason Stop Dose Admin Chlordiazepoxide HCl 10 mg 05/15/19 05:00 Librium - PO 05/15/19 23:01 [id number] TIKI Chlordiazepoxide HCl 10 mg 05/16/19 05:00 Librium - PO 05/16/19 17:01 Q12H TIKI Chlordiazepoxide HCl 10 mg 05/15/19 00:00 Librium - PO 05/16/19 00:00 Q4H PRN WITHDRAWAL(CONT SUBST) Chlordiazepoxide HCl 10 mg 05/17/19 05:00 Librium - PO 05/17/19 05:01 ONCE@0500 ONE Chlordiazepoxide HCl 25 mg 05/14/19 05:00 05/14/19 10:48 Librium - PO 05/14/19 23:01 25 mg [id number] TIKI Administration Chlordiazepoxide HCl 25 mg 05/12/19 13:30 Librium - PO 05/14/19 23:59 Q4H PRN WITHDRAWAL(CONT SUBST) Folic Acid 1 mg 05/13/19 10:00 05/14/19 09:23 Folic Acid - PO 1 mg DAILY TIKI Administration Pantoprazole Sodium 40 mg 05/13/19 10:00 05/14/19 09:23 Protonix - PO 40 mg DAILY TIKI Administration Potassium Chloride 40 meq 05/14/19 09:30 05/14/19 09:40 K-Dur - PO 05/14/19 15:31 40 meq Q6H TIKI Administration Thiamine HCl 100 mg 05/13/19 10:00 05/14/19 09:23 Vitamin B1 - PO 100 mg DAILY TIKI Administration Trimethobenzamide HCl 300 mg 05/12/19 17:35 Tigan - PO Q6H PRN NAUSEA AND/OR VOMITING ASSESSMENT/PLAN: 53 year-old woman who has not seen a health care provider in many years and with a long history of alcohol abuse. Admitted for acute alcohol withdrawal, anemia, and hypokalemia. Alcohol dependence Acute alcohol withdrawal --s/s of alcohol withdrawal present on admission, improved --continue librium taper --folic acid and thiamine --seen and evaluated by Dr. Ojeda, behavioral health: not interested in rehab --d/c telemetry monitoring r/oAcalculous cholecystitis --US: mild thickening of gallbladder wall with small amount of pericholecystic free fluid; no gallstones seen --HIDA scan today Hypokalemia --replete, goal >4 Hypomagnesemia --replete, goal >2 Blood loss anemia, chronic --Hgb 6.1 on admission --transfused 2U PRBC 05/13 with good response --h/h stable Macrocytic anemia --likely secondary to alcohol --folate and B12 OK --iron studies pending Prolonged QT interval --QTc 489 --avoid QT prolonging agents-no Zofran --Tigan PRN for nausea FEN Fluids: PO intake adequate Electrolytes: replete as indicated Nutrition: full liquid; advance as tolerated DVT prophylaxis: continue to hold chemical prophylaxisdue to anemia; SCDs Dispo: continues to require inpatient care. Full code.
[2019-05-14 15:48] VITALS: BMI 18.3
--- NOTE | 2019-05-14 17:00 | DS ---
Physical Exam: SUBJECTIVE: Patient seen and examined at bedside. OBJECTIVE: Vital Signs Period Temp Pulse Resp BP Sys/Carbajal Pulse Ox Last 24 Hr 98.0 F-98.7 F 78-90 16-18 114-117/73-84 96-100 GENERAL/NEURO: Awake, alert. Subdued. No tremors, no asterixis. CN II-XII grossly intact; speech clear and logical LUNGS: Breath sounds equal, clear to auscultation bilaterally. No wheezes, and no crackles. No accessory muscle use. HEART: Regular rate and rhythm, S1 and S2 ABDOMEN: Soft, nontender, not distended UPPER EXTREMITIES: 2+ pulses, warm, well-perfused. No cyanosis. No clubbing. No peripheral edema. LOWER EXTREMITIES: 2+ pulses, warm, well-perfused. No calf tenderness. No peripheral edema. Laboratory Tests 05/12/19 05/12/19 05/12/19 10:55 10:55 10:55 WBC RBC Hgb Hct MCV MCH MCHC RDW Plt Count MPV Absolute Neuts (auto) Neutrophils % Lymphocytes % Monocytes % Eosinophils % Basophils % Hypersegmented Neuts Hypochromia Toxic Granulation Dohle Bodies Platelet Estimate Polychromasia Poikilocytosis Basophilic Stippling Anisocytosis Microcytosis Macrocytosis Spherocytes Siderocytes Sickle Cells Target Cells Tear Drop Cells Ovalocytes Stomatocytes Helmet Cells [place] Bodies [place] Rings [place] Cells Acanthocytes (Spur) Rouleaux Fragmented RBCs Schistocytes Morphology Comment PT with INR INR PTT (Actin FS) Sodium 130 L Potassium 2.7 L* Chloride 90 L Carbon Dioxide 27 Anion Gap 13 BUN 29.0 H Creatinine 0.6 Est GFR (CKD-EPI)AfAm 118.93 Est GFR (CKD-EPI)NonAf 102.61 Random Glucose 99 Calcium 8.3 L Phosphorus Magnesium 2.1 Iron TIBC Iron Saturation Unsaturated IBC Transferrin Ferritin Total Bilirubin 0.9 AST 273 H ALT 95 H Alkaline Phosphatase 105 Creatine Kinase 30 Troponin I < 0.03 Total Protein 6.4 Albumin 3.8 Vitamin B12 Serum Folate TSH 0.92 Urine Color Urine Appearance Urine pH Urine Protein Urine Glucose (UA) Urine Ketones Urine Blood Urine Nitrite Urine Bilirubin Urine Urobilinogen Ur Leukocyte Esterase Urine HCG, Qual Stool Occult Blood Opiates Screen Methadone Screen Barbiturate Screen Phencyclidine Screen Ur Amphetamines Screen MDMA (Ecstasy) Screen Benzodiazepines Screen Cocaine Screen U Marijuana (THC) Screen Alcohol, Quantitative 180.5 H Blood Type Antibody Screen Crossmatch 05/12/19 05/12/19 05/12/19 10:55 11:45 11:50 WBC 6.6 RBC 1.48 L Hgb 6.1 L* Hct 17.6 L MCV 119.4 H MCH 41.3 H MCHC 34.6 RDW 13.8 Plt Count 314 MPV 7.4 L Absolute Neuts (auto) 4.8 Neutrophils % 71.6 Lymphocytes % 17.4 Monocytes % 10.4 H Eosinophils % 0.1 Basophils % 0.5 Hypersegmented Neuts Cancelled Hypochromia Cancelled Toxic Granulation Cancelled Dohle Bodies Cancelled Platelet Estimate Polychromasia Cancelled Poikilocytosis Cancelled Basophilic Stippling Cancelled Anisocytosis Cancelled Microcytosis Cancelled Macrocytosis Cancelled Spherocytes Cancelled Siderocytes Cancelled Sickle Cells Cancelled Target Cells Cancelled Tear Drop Cells Cancelled Ovalocytes Cancelled Stomatocytes Cancelled Helmet Cells Cancelled [place] Bodies Cancelled [place] Rings Cancelled Kami Cells Cancelled Acanthocytes (Spur) Cancelled Rouleaux Cancelled Fragmented RBCs Cancelled Schistocytes Cancelled Morphology Comment Cancelled PT with INR INR PTT (Actin FS) Sodium Potassium Chloride Carbon Dioxide Anion Gap BUN Creatinine Est GFR (CKD-EPI)AfAm Est GFR (CKD-EPI)NonAf Random Glucose Calcium Phosphorus Magnesium Iron TIBC Iron Saturation Unsaturated IBC Transferrin Ferritin Total Bilirubin AST ALT Alkaline Phosphatase Creatine Kinase Troponin I Total Protein Albumin Vitamin B12 Serum Folate TSH Urine Color Urine Appearance Urine pH Urine Protein Urine Glucose (UA) Urine Ketones Urine Blood Urine Nitrite Urine Bilirubin Urine Urobilinogen Ur Leukocyte Esterase Urine HCG, Qual Stool Occult Blood Opiates Screen Methadone Screen Barbiturate Screen Phencyclidine Screen Ur Amphetamines Screen MDMA (Ecstasy) Screen Benzodiazepines Screen Cocaine Screen U Marijuana (THC) Screen Alcohol, Quantitative Blood Type B POSITIVE B POSITIVE Antibody Screen Negative Crossmatch See Detail 05/12/19 05/12/19 05/12/19 11:59 17:30 17:30 WBC RBC Hgb Hct MCV MCH MCHC RDW Plt Count MPV Absolute Neuts (auto) Neutrophils % Lymphocytes % Monocytes % Eosinophils % Basophils % Hypersegmented Neuts Hypochromia Toxic Granulation Dohle Bodies Platelet Estimate Polychromasia Poikilocytosis Basophilic Stippling Anisocytosis Microcytosis Macrocytosis Spherocytes Siderocytes Sickle Cells Target Cells Tear Drop Cells Ovalocytes Stomatocytes Helmet Cells [place] Bodies [place] Rings Kami Cells Acanthocytes (Spur) Rouleaux Fragmented RBCs Schistocytes Morphology Comment PT with INR INR PTT (Actin FS) Sodium Potassium Chloride Carbon Dioxide Anion Gap BUN Creatinine Est GFR (CKD-EPI)AfAm Est GFR (CKD-EPI)NonAf Random Glucose Calcium Phosphorus Magnesium Iron TIBC Iron Saturation Unsaturated IBC Transferrin Ferritin Total Bilirubin AST ALT Alkaline Phosphatase Creatine Kinase Troponin I Total Protein Albumin Vitamin B12 Serum Folate TSH Urine Color Urine Appearance Urine pH Urine Protein Urine Glucose (UA) Urine Ketones Urine Blood Urine Nitrite Urine Bilirubin Urine Urobilinogen Ur Leukocyte Esterase Urine HCG, Qual Negative Stool Occult Blood Trace Opiates Screen Negative Methadone Screen Negative Barbiturate Screen Negative Phencyclidine Screen Negative Ur Amphetamines Screen Negative MDMA (Ecstasy) Screen Negative Benzodiazepines Screen Negative Cocaine Screen Negative U Marijuana (THC) Screen Negative Alcohol, Quantitative Blood Type Antibody Screen Crossmatch 05/12/19 05/12/19 05/12/19 17:30 17:35 17:35 WBC RBC Hgb Hct MCV MCH MCHC RDW Plt Count MPV Absolute Neuts (auto) Neutrophils % Lymphocytes % Monocytes % Eosinophils % Basophils % Hypersegmented Neuts Hypochromia Toxic Granulation Dohle Bodies Platelet Estimate Polychromasia Poikilocytosis Basophilic Stippling Anisocytosis Microcytosis Macrocytosis Spherocytes Siderocytes Sickle Cells Target Cells Tear Drop Cells Ovalocytes Stomatocytes Helmet Cells [place] Bodies [place] Rings Kami Cells Acanthocytes (Spur) Rouleaux Fragmented RBCs Schistocytes Morphology Comment PT with INR INR PTT (Actin FS) 22.5 L Sodium Cancelled Potassium Cancelled Chloride Cancelled Carbon Dioxide Cancelled Anion Gap Cancelled BUN Cancelled Creatinine Cancelled Est GFR (CKD-EPI)AfAm Cancelled Est GFR (CKD-EPI)NonAf Cancelled Random Glucose Cancelled Calcium Cancelled Phosphorus Magnesium Cancelled Iron TIBC Iron Saturation Unsaturated IBC Transferrin Ferritin Total Bilirubin AST ALT Alkaline Phosphatase Creatine Kinase Troponin I Total Protein Albumin Vitamin B12 404 Serum Folate TSH Urine Color Yellow Urine Appearance Clear Urine pH 5.5 Urine Protein Trace Urine Glucose (UA) Negative Urine Ketones Trace Urine Blood Negative Urine Nitrite Negative Urine Bilirubin 1+ H Urine Urobilinogen 1.0 Ur Leukocyte Esterase Negative Urine HCG, Qual Stool Occult Blood Opiates Screen Methadone Screen Barbiturate Screen Phencyclidine Screen Ur Amphetamines Screen MDMA (Ecstasy) Screen Benzodiazepines Screen Cocaine Screen U Marijuana (THC) Screen Alcohol, Quantitative Blood Type Antibody Screen Crossmatch 05/12/19 05/12/19 05/12/19 17:35 17:35 17:35 WBC RBC Hgb Hct MCV MCH MCHC RDW Plt Count MPV Absolute Neuts (auto) Neutrophils % Lymphocytes % Monocytes % Eosinophils % Basophils % Hypersegmented Neuts Hypochromia Toxic Granulation Dohle Bodies Platelet Estimate Polychromasia Poikilocytosis Basophilic Stippling Anisocytosis Microcytosis Macrocytosis Spherocytes Siderocytes Sickle Cells Target Cells Tear Drop Cells Ovalocytes Stomatocytes Helmet Cells [place] Bodies [place] Rings Kami Cells Acanthocytes (Spur) Rouleaux Fragmented RBCs Schistocytes Morphology Comment PT with INR INR PTT (Actin FS) Sodium 135 L Potassium 4.3 Chloride 102 Carbon Dioxide 26 Anion Gap 7 L BUN 21.0 H Creatinine 0.4 L Est GFR (CKD-EPI)AfAm 135.90 Est GFR (CKD-EPI)NonAf 117.26 Random Glucose 86 Calcium 7.5 L Phosphorus Magnesium 1.8 Iron 63 TIBC 238 L Iron Saturation 26 Unsaturated IBC 175 L Transferrin Ferritin 1165.1 H Total Bilirubin AST ALT Alkaline Phosphatase Creatine Kinase Troponin I Total Protein Albumin Vitamin B12 Serum Folate > 100 H TSH Urine Color Urine Appearance Urine pH Urine Protein Urine Glucose (UA) Urine Ketones Urine Blood Urine Nitrite Urine Bilirubin Urine Urobilinogen Ur Leukocyte Esterase Urine HCG, Qual Stool Occult Blood Opiates Screen Methadone Screen Barbiturate Screen Phencyclidine Screen Ur Amphetamines Screen MDMA (Ecstasy) Screen Benzodiazepines Screen Cocaine Screen U Marijuana (THC) Screen Alcohol, Quantitative Blood Type Antibody Screen Crossmatch 05/12/19 05/13/19 05/13/19 17:35 07:12 07:12 WBC 5.9 RBC 2.49 L Hgb 8.8 L Hct 25.9 L D MCV 104.0 H MCH 35.6 H D MCHC 34.2 RDW 26.1 H Plt Count 244 MPV 7.4 L Absolute Neuts (auto) 4.4 Neutrophils % 73.1 Lymphocytes % 10.2 Monocytes % 15.3 H Eosinophils % 0.8 Basophils % 0.6 Hypersegmented Neuts Hypochromia 1+ Toxic Granulation Dohle Bodies Platelet Estimate Adequate Polychromasia 1+ Poikilocytosis Basophilic Stippling Anisocytosis 2+ Microcytosis Macrocytosis 1+ Spherocytes Siderocytes Sickle Cells Target Cells Tear Drop Cells Ovalocytes Stomatocytes Helmet Cells [place] Bodies [place] Rings [place] Cells Acanthocytes (Spur) Rouleaux Fragmented RBCs Schistocytes Morphology Comment PT with INR INR PTT (Actin FS) Sodium 135 L Potassium 3.5 Chloride 98 Carbon Dioxide 28 Anion Gap 9 BUN 15.0 Creatinine 0.4 L Est GFR (CKD-EPI)AfAm 135.90 Est GFR (CKD-EPI)NonAf 117.26 Random Glucose 93 Calcium 7.7 L Phosphorus 2.4 L Magnesium 1.5 L Iron TIBC Iron Saturation Unsaturated IBC Transferrin 180 L Ferritin Total Bilirubin 1.4 H AST 192 H ALT 80 H Alkaline Phosphatase 91 D Creatine Kinase Troponin I Total Protein 5.4 L Albumin 3.2 L Vitamin B12 Serum Folate TSH Urine Color Urine Appearance Urine pH Urine Protein Urine Glucose (UA) Urine Ketones Urine Blood Urine Nitrite Urine Bilirubin Urine Urobilinogen Ur Leukocyte Esterase Urine HCG, Qual Stool Occult Blood Opiates Screen Methadone Screen Barbiturate Screen Phencyclidine Screen Ur Amphetamines Screen MDMA (Ecstasy) Screen Benzodiazepines Screen Cocaine Screen U Marijuana (THC) Screen Alcohol, Quantitative Blood Type Antibody Screen Crossmatch 05/13/19 05/14/19 05/14/19 07:12 07:00 07:00 WBC 8.0 RBC 2.81 L Hgb 10.2 L Hct 30.0 L D MCV 106.4 H MCH 36.3 H MCHC 34.2 RDW 27.5 H Plt Count 351 MPV 7.6 Absolute Neuts (auto) 5.9 Neutrophils % 74.0 Lymphocytes % 13.3 Monocytes % 10.7 H Eosinophils % 1.6 Basophils % 0.4 Hypersegmented Neuts Hypochromia Toxic Granulation Dohle Bodies Platelet Estimate Polychromasia Poikilocytosis Basophilic Stippling Anisocytosis Microcytosis Macrocytosis Spherocytes Siderocytes Sickle Cells Target Cells Tear Drop Cells Ovalocytes Stomatocytes Helmet Cells [place] Bodies [place] Rings [place] Cells Acanthocytes (Spur) Rouleaux Fragmented RBCs Schistocytes Morphology Comment PT with INR 11.6 INR 1.04 PTT (Actin FS) Sodium 134 L Potassium 3.3 L Chloride 99 Carbon Dioxide 28 Anion Gap 7 L BUN 5.0 L Creatinine 0.4 L Est GFR (CKD-EPI)AfAm 135.90 Est GFR (CKD-EPI)NonAf 117.26 Random Glucose 95 Calcium 8.3 L Phosphorus Magnesium 1.8 Iron TIBC Iron Saturation Unsaturated IBC Transferrin Ferritin Total Bilirubin 1.0 AST 131 H ALT 82 H Alkaline Phosphatase 107 D Creatine Kinase Troponin I Total Protein 6.3 L Albumin 3.6 Vitamin B12 Serum Folate TSH Urine Color Urine Appearance Urine pH Urine Protein Urine Glucose (UA) Urine Ketones Urine Blood Urine Nitrite Urine Bilirubin Urine Urobilinogen Ur Leukocyte Esterase Urine HCG, Qual Stool Occult Blood Opiates Screen Methadone Screen Barbiturate Screen Phencyclidine Screen Ur Amphetamines Screen MDMA (Ecstasy) Screen Benzodiazepines Screen Cocaine Screen U Marijuana (THC) Screen Alcohol, Quantitative Blood Type Antibody Screen Crossmatch Active Medications Generic Name Dose Route Start Last Admin Trade Name Freq PRN Reason Stop Dose Admin Chlordiazepoxide HCl 10 mg 05/15/19 05:00 Librium - PO 05/15/19 23:01 [id number] TIKI Chlordiazepoxide HCl 10 mg 05/16/19 05:00 Librium - PO 05/16/19 17:01 Q12H TIKI Chlordiazepoxide HCl 10 mg 05/15/19 00:00 Librium - PO 05/16/19 00:00 Q4H PRN WITHDRAWAL(CONT SUBST) Chlordiazepoxide HCl 10 mg 05/17/19 05:00 Librium - PO 05/17/19 05:01 ONCE@0500 ONE Chlordiazepoxide HCl 25 mg 05/14/19 05:00 05/14/19 10:48 Librium - PO 05/14/19 23:01 25 mg [id number] TIKI Administration Chlordiazepoxide HCl 25 mg 05/12/19 13:30 Librium - PO 05/14/19 23:59 Q4H PRN WITHDRAWAL(CONT SUBST) Folic Acid 1 mg 05/13/19 10:00 05/14/19 09:23 Folic Acid - PO 1 mg DAILY TIKI Administration Pantoprazole Sodium 40 mg 05/13/19 10:00 05/14/19 09:23 Protonix - PO 40 mg DAILY TIKI Administration Potassium Chloride 40 meq 05/14/19 09:30 05/14/19 09:40 K-Dur - PO 05/14/19 15:31 40 meq Q6H TIKI Administration Thiamine HCl 100 mg 05/13/19 10:00 05/14/19 09:23 Vitamin B1 - PO 100 mg DAILY TIKI Administration Trimethobenzamide HCl 300 mg 05/12/19 17:35 Tigan - PO Q6H PRN NAUSEA AND/OR VOMITING HOSPITAL COURSE: Date of Admission:05/12/19 Date of Discharge: 05/14/19 Pre hospital course 53 year-old woman who has not seen a health care provider in many years and who acknowledges a long history of alcohol abuse. Patient started drinking alcohol in college. She cannot remember a day since then when she did not drink. She presented to the ED today with several complaints: (1) over the past month has had lower extremity weakness, her balance has been off, and she has had to hold on to furniture and [place] to remain upright, this occurs, she says, not from intoxication but because her feet feel tingly; (2) she has been vomiting dark brown vomit x 1 month, last episode 2 days ago; (3) diarrhea for the past two weeks, dark brown loose stools/liquid; (4) bright red blood on toilet paper at end of a bowel movement, this is chronic, denies history of hemorrhoids. In past year has gone from 140-145 lbs to 107 lbs. Patient states she has not been "eating right". LMP a few years ago, denies vaginal bleeding. Denies dysuria, frequency, urgency, hematuria. Denies fever, sweats, chills. Takes no medications other than an occasional Tylenol. A week ago she started taking a daily baby aspirin because someome recommended it to her. She denies NSAID use. ER course (1) BP 93/65, p104 (2) Hgb 6.1, MCV 119 (3) K 2.7 Subsequent hospital course 53 year-old woman who has not seen a health care provider in many years and with a long history of alcohol abuse. Admitted for acute alcohol withdrawal, anemia, and hypokalemia. Alcohol dependence Acute alcohol withdrawal --s/s of alcohol withdrawal present on admission, improved --started on librium taper, two more days to go at time of AMA --daily folic acid and thiamine --seen and evaluated by Dr. Ojeda, behavioral health: not interested in rehab r/o acalculous cholecystitis --US: mild thickening of gallbladder wall with small amount of pericholecystic free fluid; no gallstones seen --HIDA negative Hypokalemia --daily repletion to goal >4 Hypomagnesemia --daily repletion to goal >2 Blood loss anemia, chronic --Hgb 6.1 on admission --transfused 2U PRBC 05/13 with good response, 10.2 today Macrocytic anemia --likely secondary to alcohol --folate and B12 OK Prolonged QT interval --QTc 489 --avoid QT prolonging agents-no Zofran --Tigan PRN for nausea Disposition Advised patient HIDA scan negative. Advised patient of all pertinent lab values. Told her the librium taper would not be complete until Friday morning. Patient said she was not going to spend the holiday weekend in the hopsital. Discussed at length the risks of leaving AMA including alcohol withdrawal- related seizures, hypoxia, respiratory arrest, aspiration, aspiration pneumonia , status epilepticus, and . Patient stated she still wants to sign out against medical advice. Recommended to patient she establish a relationship with a primary care provider. 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 Patient expressed understanding. Minutes to complete discharge: 35 Discharge Summary Reason For Visit: ORTHOSTATIC HYPOTENSION,SECONDARY ANEMIA,HYPOKALEM Current Active Problems Dehydration (Acute) Hypokalemia (Acute) Orthostatic hypotension (Acute) Symptomatic anemia (Acute) Condition: Fair - Instructions - Home Medications Comprehensive Discharge Medication List: Ambulatory Orders NK [No Known Home Medication] 05/12/19 This patient is new to me today: No Emergency Visit: Yes ED Registration Date: 05/12/19 Care time: The patient presented to the Emergency Department on the above date and was hospitalized for further evaluation of their emergent condition. Critical Care patient: No - Discharge Referral Referred to [facility] Med [facility] No
--- NOTE | 2019-05-14 21:21 | HOSP ---
Subjective - Review of Symptoms Events since last encounter: Advised by nursing staff patient decided to remain in the hospital. All previous orders resumed. Physical Examination Vital Signs: Vital Signs Temperature 98.4 F 05/14/19 18:00 Pulse Rate 103 H 05/14/19 18:00 Respiratory Rate 18 05/14/19 19:52 Blood Pressure 103/64 05/14/19 18:00 O2 Sat by Pulse Oximetry (%) 100 05/14/19 19:52 Labs: CBC, BMP 05/14/19 07:00 05/14/19 07:00
[2019-05-15] MEDS ORDERED: chlordiazePOXIDE HCL 10 MG CAPSULE PO PRN
[2019-05-15] MEDS: chlordiazePOXIDE HCL 25 MG CAPSULE PO SCH (03:02)
[2019-05-15] MEDS ORDERED: chlordiazePOXIDE 5 MG CAPSULE ONE ×2 (06:46→10:18)
[2019-05-15] MEDS: chlordiazePOXIDE HCL 10 MG CAPSULE PO SCH ×2 (06:48→10:22)
--- NOTE | 2019-05-15 08:58 | PN ---
Physical Exam: SUBJECTIVE: Patient seen and examined pt at bedside, [place], dizziness, cp, sob, palpitations, abdominal pain, N/V/D,urinary symptoms,tremors or shaking. OBJECTIVE: Vital Signs Period Temp Pulse Resp BP Sys/Carbajal Pulse Ox Last 24 Hr 98.0 F-99.3 F 80-103 17-18 100-116/64-98 97-100 GENERAL: The patient is awake, alert, and fully oriented, in no acute distress. HEAD: Normal with no signs of trauma. EYES: PERRL, extraocular movements intact, sclera anicteric, conjunctiva clear. No ptosis. ENT: Ears normal, nares patent, oropharynx clear without exudates, moist mucous membranes. NECK: Trachea midline, full range of motion, supple. LUNGS: Breath sounds equal, clear to auscultation bilaterally, no wheezes, no crackles, no accessory muscle use. HEART: Regular rate and rhythm, S1, S2 without murmur, rub or gallop. ABDOMEN: Soft, nontender, nondistended, normoactive bowel sounds, no guarding, no rebound, no hepatosplenomegaly, no masses. EXTREMITIES: 2+ pulses, warm, well-perfused, no edema. NEUROLOGICAL: Cranial nerves II through XII grossly intact. Normal speech, gait not observed. PSYCH: Normal mood, normal affect. SKIN: Warm, dry, normal turgor, no rashes or lesions noted Active Medications Generic Name Dose Route Start Last Admin Trade Name Freq PRN Reason Stop Dose Admin Chlordiazepoxide HCl 10 mg 05/15/19 05:00 05/15/19 06:48 Librium - PO 05/15/19 23:01 10 mg [id number] TIKI Administration Chlordiazepoxide HCl 10 mg 05/16/19 05:00 Librium - PO 05/16/19 17:01 Q12H TIKI Chlordiazepoxide HCl 10 mg 05/15/19 00:00 Librium - PO 05/16/19 00:00 Q4H PRN WITHDRAWAL(CONT SUBST) Chlordiazepoxide HCl 10 mg 05/17/19 05:00 Librium - PO 05/17/19 05:01 ONCE@0500 ONE Folic Acid 1 mg 05/13/19 10:00 05/14/19 09:23 Folic Acid - PO 1 mg DAILY TIKI Administration Pantoprazole Sodium 40 mg 05/13/19 10:00 05/14/19 09:23 Protonix - PO 40 mg DAILY TIKI Administration Thiamine HCl 100 mg 05/13/19 10:00 05/14/19 09:23 Vitamin B1 - PO 100 mg DAILY TIKI Administration Trimethobenzamide HCl 300 mg 05/12/19 17:35 Tigan - PO Q6H PRN NAUSEA AND/OR VOMITING ASSESSMENT/PLAN: 53 year-old woman who has not seen a health care provider in many years and with a long history of alcohol abuse. Admitted for acute alcohol withdrawal, anemia, and hypokalemia. *Alcohol dependence Acute alcohol withdrawal - no evidence of DT -will cont on Librium taper and Thiamin - elevated Folate level - PSY consult done, rec Librium taper - pt not interested Rehab - encouraged to abstinence form drinking *r/o acalculous cholecystitis -US: mild thickening of gallbladder wall with small amount of pericholecystic free fluid; no gallstones seen -HIDA negative - elevated LFt's likely due to ETOH use *Hypokalemia -K.3.3, s/p replacement - will andrews check Cigar Head Holer Hypomagnesemia -daily repletion to goal >2 - will check mg *Blood loss anemia, chronic -Hgb 6.1 on admission -s/p 2 units of blood transfusion, post transfusion 10. - stool ob with trace blood - will monitor CBC closely *Macrocytic anemia-likely secondary to alcohol -Folate level >100 and B12 OK *Prolonged QT interval -QTc 489 -avoid QT prolonging agents-no Zofran -Tigan PRN for nausea * F/E/N - Regular diet - Replace electrolytes as needed *VTE: SCD's, hold off Ac due to anemia. Addendum: pt left AMA Visit type - Emergency Visit Emergency Visit: Yes ED Registration Date: 05/12/19 Care time: The patient presented to the Emergency Department on the above date and was hospitalized for further evaluation of their emergent condition. - New Patient This patient is new to me today: Yes Date on this admission: 05/15/19 - Critical Care Critical Care patient: No
[2019-05-15] MEDS: THIAMINE HCL 100 MG TABLET (FP) PO SCH (09:22)
[2019-05-15] MEDS: PANTOPRAZOLE 40 MG TABLET (FP) PO SCH (09:22)
[2019-05-15 09:42] VITALS: BP 112/65; PULSE 102; TEMP 98.9
[2019-05-15 09:50] LABS: CALCIUM 8.8 mg/dl (8.5-10); CREATININE 0.4 mg/dl (0.55-1.3); POTASSIUM 4.5 mmol/L (3.5-5.1)
[2019-05-15 10:04] LABS: BASO % 0.3 % (0-2.0); EOS % 1.5 % (0-4.5); HEMATOCRIT 30.6 % (32.4-45.2); HEMOGLOBIN 10.2 GM/dl (10.7-15.3); LYMPH % 13.5 % (8-40); MCH 35.3 pg (25.7-33.7); MCHC 33.3 g/dl (32.0-36.0); MEAN PLT VOLUME 7.6 fl (7.5-11.1); MONO % 15.2 % (3.8-10.2); NEUT % 69.5 % (42.8-82.8); PLATELET COUNT 399 K/MM3 (134-434); RDW 26.3 % (11.6-15.6); WHITE BLOOD COUNT 7.4 K/mm3 (4.0-10.8)
[2019-05-15 10:09] LABS: MEAN CELL VOLUME 105.8 fl (80-96)
[2019-05-16] MEDS ORDERED: chlordiazePOXIDE HCL 10 MG CAPSULE PO SCH (05:00)
[2019-05-17] MEDS ORDERED: chlordiazePOXIDE HCL 10 MG CAPSULE PO ONE (05:00)
[2019-05-18 16:11] LABS: HOMOCYSTINE-PLASMA OR SERUM 33.8 umol/L (5.1-13.9)
== END 2019-05-15 11:12 | disposition left against medical advice (07) | DRG 894 ==
LOC: FER 10:24 → FM/S 12:44
PROVIDERS: ADMIT Internal Medicine; ATTEND Nurse Practitioner Acute Care
PROC: HZ2ZZZZ Detoxification Services for Substance Abuse Treatment (ICD-10-PCS; principal; 2019-05-12)
DX: F10.230 Alcohol dependence with withdrawal, uncomplicated (principal); I95.1 Orthostatic hypotension; D64.9 Anemia, unspecified; E87.6 Hypokalemia; E86.0 Dehydration; I45.81 Long QT syndrome; E83.42 Hypomagnesemia; K81.9 Cholecystitis, unspecified
CPT/HCPCS: 36415; 36430; 36511; 70450-TC; 76705-TC; 78226-TC; 80048; 80053; 80307; 81003; 82136; 82272; 82550; 82607; 82728; 82746; 83540; 83550; 83735; 83918; 84100; 84443; 84466; 84484; 84703; 85025; 85610; 85730; 86850; 86900; 86901; 86922; 87086; 93005; 97116-GP; 97162-GP; 99283-25; A9537; J7030; P9038; P9058

== ENCOUNTER 2019-05-17 11:00 | Emergency (ER) | payer OTHER ==
[2019-05-17 11:05] VITALS: TEMP 98; BMI 17.2
[2019-05-17] MEDS ORDERED: FOLIC ACID INJECTION - 1 MG, THIAMINE HCL 100 MG, MULTIVIT INJECTION ADULT 10 ML in SOD... IVPB ONE (11:37)
--- NOTE | 2019-05-17 11:43 | PDOC ---
Attending Attestation - Resident Resident Name: Fox Aceves - ED Attending Attestation I have performed the following: I have examined & evaluated the patient, The case was reviewed & discussed with the resident, I agree w/resident's findings & plan - HPI HPI: 05/17/19 11:40 53 y/o female with hx of alcohol abuse recently seen in ER adn signed out AMA. Received 2 units of PRBC. Patient feels off balance again. Last drink last night. No N/V/d/c. No fall or trauma. Denies headache, fever, chills, SOB or chest pain. - Physicial Exam PE: 05/17/19 11:41 VS stable HEENT: small abrasion to bridge of nose Heart: RRR w/o murmur no clicks gallops or rubs Lungs: CTA b/l, no wheezes rhonchi or rales noted Abd: soft non tender +BS EXT: no C/C/E Neuro: strength 5+/5 b/l in UE and LE, no focal deficits noted, no tremors - Medical Decision Making 05/17/19 12:13 EKG: HR 78 No STEMI 05/17/19 14:18 Patient given Banana Bag Doing well, labs normal Will need out patient detox, no sign of DTs at this time Patient balance and memory issue most likely related to her drinking Family in agreement with plan Dx: alcohol dependence unsteadiness Case reviewed and discussed with Dr. Aceves, resident
--- NOTE | 2019-05-17 11:44 | PDOC ---
History of Present Illness - General Chief Complaint: Weakness Stated Complaint: WEAKNESS Time Seen by Provider: 05/17/19 11:02 - History of Present Illness Initial Comments: 05/17/19 11:39 53F with pmh of alcoholism with recent admission for blood transfusion and hypokalemia, leaving AMA 2 days ago, now presents with balance problem, unable to keep steady. Reports no new bleeding since leaving the hospital. Admists to have drunk a glass of wine since then. Past History - Past Medical History Allergies/Adverse Reactions: Allergies Allergy/AdvReac Type Severity Reaction Status Date / Time No Known Allergies Allergy Verified 05/17/19 11:00 Home Medications: Ambulatory Orders NK [No Known Home Medication] 05/12/19 Anemia: Yes Asthma: No Cancer: No Cardiac Disorders: Yes (h/o prolonged QT) CVA: No COPD: No CHF: No Dementia: No Diabetes: No GI Disorders: No Disorders: No HTN: No Hypercholesterolemia: No Liver Disease: No Psychiatric Problems: Yes Seizures: No Thyroid Disease: No - Surgical History Appendectomy: No Cardiac Surgery: No Lung Surgery: No Neurologic Surgery: No Orthopedic Surgery: No - Suicide/Smoking/Psychosocial Hx Smoking History: Never smoked Have you smoked in the past 12 months: No Information on smoking cessation initiated: No Hx Alcohol Use: Yes Drug/Substance Use Hx: No Substance Use Type: Alcohol Hx Substance Use Treatment: No Review of Systems - Review of Systems Able to Perform ROS?: Yes Is the patient limited Lao proficient: No Constitutional: No: Symptoms Reported HEENTM: No: Symptoms Reported Respiratory: No: Symptoms reported Cardiac (ROS): No: Symptoms Reported ABD/GI: No: Symptoms Reported : No: Symptoms Reported Musculoskeletal: No: Symptoms Reported Integumentary: No: Symptoms Reported Neurological: Yes: Dizziness All Other Systems: Reviewed and Negative *Physical Exam - Vital Signs Last Vital Signs Temp Pulse Resp BP Pulse Ox 98 F 92 H 18 125/85 100 05/17/19 11:00 05/17/19 11:00 05/17/19 11:00 05/17/19 11:00 05/17/19 11:00 - Physical Exam General Appearance: Yes: Appropriately Dressed, Thin. No: Apparent Distress HEENT: positive: EOMI, SCOOBY, Normal ENT Inspection Respiratory/Chest: positive: Lungs Clear, Normal Breath Sounds. negative: Chest Tender, Respiratory Distress Cardiovascular: positive: Regular Rhythm, Regular Rate, S1, S2 Gastrointestinal/Abdominal: positive: Normal Bowel Sounds, Flat, Soft. negative : Tender Musculoskeletal: positive: Normal Inspection. negative: CVA Tenderness Neurologic: positive: Fully Oriented, Alert, Depressed Affect (flat affect, delayed response). negative: Normal Mood/Affect ED Treatment Course - LABORATORY CBC & Chemistry Diagram: 05/17/19 11:45 05/17/19 11:45 Medical Decision Making - Medical Decision Making 05/17/19 11:44 Will replete thiamine with banana bag, basic labs to check on hemoglobin and potassium as it was very low last time. 05/17/19 13:15 All labs wnl. Banana bag treatement. UA pending. 05/17/19 14:01 Patient feels better. Ok to go home with follow up for detox at [facility] outpatient. *DC/Admit/Observation/Transfer Diagnosis at time of Disposition: General unsteadiness - Discharge Dispostion Disposition: HOME Condition at time of disposition: Guarded Decision to Admit order: No - Referrals Referrals: Joon REYES [Provider Group] Mehul Cruz MD [Staff Physician] - - Patient Instructions Printed Discharge Instructions: Drug and Alcohol Withdrawal Additional Instructions: Come back to the emergency department for any new, worsening or concerning symptom. Follow up with [facility] for detox and with your primary care provider refereed in this discharge. - Post Discharge Activity
[2019-05-17 12:24] LABS: BASO % 0.5 % (0-2.0); EOS % 1.1 % (0-4.5); HEMOGLOBIN 11.1 GM/dl (10.7-15.3); LYMPH % 9.7 % (8-40); MCH 36.3 pg (25.7-33.7); MCHC 33.8 g/dl (32.0-36.0); MEAN CELL VOLUME 107.6 fl (80-96); MEAN PLT VOLUME 7.7 fl (7.5-11.1); MONO % 17.2 % (3.8-10.2); NEUT % 71.5 % (42.8-82.8); PLATELET COUNT 469 K/MM3 (134-434); RBC 3.07 M/mm3 (3.60-5.2); WHITE BLOOD COUNT 8.6 K/mm3 (4.0-10.8)
[2019-05-17 12:29] LABS: INR 1.09 (0.82-1.09); PROTHROMBIN TIME (PATIENT) 12.2 SEC (10.2-13.0)
[2019-05-17 12:33] LABS: ALBUMIN 3.6 g/dl (3.4-5.0); BILIRUBIN,TOTAL 0.9 mg/dl (0.2-1); CALCIUM 8.9 mg/dl (8.5-10); CREATININE 0.5 mg/dl (0.55-1.3); POTASSIUM 4.5 mmol/L (3.5-5.1); TOT PROT 6.6 g/dl (6.4-8.2)
[2019-05-17 12:35] LABS: ADD RBC MORPHOLOGY YES
[2019-05-17 13:45] LABS: ANISOCYTOSIS 2+; MACROCYTOSIS 1+
[2019-05-17 15:00] VITALS: BP 121/69; PULSE 85
--- NOTE | 2019-05-18 12:39 | EKG ---
Test Reason : Blood Pressure : / mmHG Vent. Rate : 078 BPM Atrial Rate : 078 BPM P-R Int : 178 ms QRS Dur : 080 ms QT Int : 384 ms P-R-T Axes : 064 024 049 degrees QTc Int : 437 ms NORMAL SINUS RHYTHM NORMAL ECG Confirmed by Conrad Brown MD ([id number]) on 05/18/2019 12:39:37 PM Referred By: SHAUNA BOWLING Confirmed By:Conrad Brown MD
== END 2019-05-17 15:00 | disposition home or self-care (01) ==
LOC: FER 11:00
PROC: 3E033GC Introduction of Other Therapeutic Substance into Peripheral Vein, Percutaneous Approach (ICD-10-PCS; principal; 2019-05-17)
DX: R26.81 Unsteadiness on feet (principal); F10.20 Alcohol dependence, uncomplicated
CPT/HCPCS: 36415; 80053; 80307; 85025; 85610; 86850; 86900; 86901; 93005; 99284-25; J7030